=== PATIENT | female | born 1990 | race American Indian/Alaskan Native ===

== ENCOUNTER 2017-12-06 09:44 | Emergency (ER) | payer MEDICAID ==
[2017-12-06 09:45] VITALS: BMI 32.9
[2017-12-06 10:05] VITALS: BP 104/70; PULSE 103; RESP 16; TEMP 98.5; O2SAT 97
--- NOTE | 2017-12-06 10:35 | C.PDOC ---
History Of Present Illness 27 year old female, otherwise healthy, presents to the ER complaining of generalized weakness, cough, congestion, and body aches for 5 days. Also reports chills and sweats. Patient requesting note for absence from work. Otherwise no headache, abdominal pain, vomiting, diarrhea, or shortness of breath. HPI: Influenza Time Seen by Provider: 12/06/17 10:09 Chief Complaint: Flu-like Symptoms Chief Complaint (Provider): Flu-like Symptoms History Per: Patient Exam Limitations: no limitations Onset/Duration Of Symptoms: Days (x5) Symptoms include: bodyaches, cough, nasal congestion Risk factors for flu complications: No: adult > 65 years, child < 5 years, , chronic lung disease, endocrine disorders Past Medical History Reviewed: Historical Data, Nursing Documentation, Vital Signs Vital Signs: Last Vital Signs Temp 98.5 F 12/06/17 10:01 Pulse 103 H 12/06/17 10:01 Resp 16 12/06/17 10:01 BP 104/70 12/06/17 10:01 Pulse Ox 97 12/06/17 10:01 - Medical History PMH: Migraine Denies: Chronic Kidney Disease Surgical History: Cholecystectomy, - [facility] Procedures PLAIN RADIOGRAPHY OF HEPATOBIL SYS, ALL USING L OSM CONTRAST (01/16/16) RESECTION OF GALLBLADDER, PERCUTANEOUS ENDOSCOPIC APPROACH (01/16/16) Family History: States: No Known Family Hx - Social History Hx Alcohol Use: No Hx Substance Use: Yes - Immunization History Hx Tetanus Toxoid Vaccination: No Hx Influenza Vaccination: No Hx Pneumococcal Vaccination: No Review Of Systems Except As Marked, All Systems Reviewed And Found Negative. Constitutional: Positive for: Chills, Sweats, Weakness, Other (body aches). Negative for: Fever ENT: Positive for: Nose Congestion Cardiovascular: Negative for: Chest Pain Respiratory: Positive for: Cough. Negative for: Shortness of Breath Gastrointestinal: Negative for: Nausea, Vomiting Neurological: Negative for: Headache, Dizziness Physical Exam - Physical Exam Appears: Non-toxic, No Acute Distress Skin: Normal Color, Warm, Dry Head: Atraumatic, Normacephalic Eye(s): bilateral: Normal Inspection, PERRL, EOMI Ear(s): Bilateral: Normal Nose: Normal Oral Mucosa: Moist Throat: Normal, No Erythema, No Exudate Neck: Normal ROM, Supple Chest: Symmetrical Cardiovascular: Rhythm Regular Respiratory: Normal Breath Sounds, No Rales, No Rhonchi, No Wheezing Extremity: Bilateral: Atraumatic, Normal Color And Temperature, Normal ROM Neurological/Psych: Oriented x3, Normal Speech Medical Decision Making Medical Decision Making: Time: 10:16 Initial Plan: * POC urine Treatment in ED: * Motrin 600 mg PO * Tylenol 975 mg PO * Tamiflu 75 mg PO Patient stable for d/c home. Provided with rx for Tamiflu and Motrin. Counseled regarding diagnosis and return precautions. - Laboratory Results Urine POC: Negative - ECG O2 Sat by Pulse Oximetry: 97 (RA) Pulse Ox Interpretation: Normal Disposition Counseled Patient/Family Regarding: Diagnosis, Need For Followup, Rx Given - Disposition Referrals: [facility] [Outside] Disposition: HOME/ ROUTINE Disposition Time: 10:37 Condition: STABLE Prescriptions: Ibuprofen [Motrin] 600 mg PO TID #15 tab Oseltamivir [Tamiflu] 1 cap PO BID #10 cap Instructions: Flu, Adult (DC) Forms: General Discharge Instructions, [facility] (Romansh), Work Excuse - POA Present On Arrival: None - Clinical Impression Clinical Impression: Influenza - Scribe Statement The provider has reviewed the documentation as recorded by the Hammadibjose daniel Simons Provider Attestation: All medical record entries made by the Hammadibe were at my direction and personally dictated by me. I have reviewed the chart and agree that the record accurately reflects my personal performance of the history, physical exam, medical decision making, and the department course for this patient. I have also personally directed, reviewed, and agree with the discharge instructions and disposition.
== END 2017-12-06 10:48 | disposition home or self-care (01) ==
LOC: C.ER 09:44
DX: J11.1 Influenza due to unidentified influenza virus with other respiratory manifestations (principal)

== ENCOUNTER 2018-11-01 17:07 | Emergency (ER) | payer MEDICAID ==
[2018-11-01 17:07] VITALS: BMI 32.9
[2018-11-01 17:24] VITALS: RESP 18
[2018-11-01 17:48] LABS: INFLUENZA A B NEGATIVE FOR FLU A/B (NEGATIVE)
--- NOTE | 2018-11-01 18:00 | RAD ---
Date of service: 11/01/2018 HISTORY: cough, fever COMPARISON: No prior. TECHNIQUE: Chest PA and lateral FINDINGS: LUNGS: No active pulmonary disease. PLEURA: No significant pleural effusion identified. No pneumothorax apparent. CARDIOVASCULAR: No aortic atherosclerotic calcification present. Normal cardiac size. No pulmonary vascular congestion. OSSEOUS STRUCTURES: No significant abnormalities. VISUALIZED UPPER ABDOMEN: Normal. OTHER FINDINGS: None. IMPRESSION: No active disease.
[2018-11-01 18:01] LABS: SQUAMOUS EPITHIAL 6 /hpf (0-5); URINE BACTERIA FEW (<OCC); URINE BILIRUBIN NEGATIVE (NEGATIVE); URINE BLOOD 2+ (NEGATIVE); URINE CLARITY Clear (Clear); URINE COLOR Straw (YELLOW); URINE GLUCOSE (UA) NORMAL (Normal); URINE LEUKOCYTE ESTERASE 1+ Leu/uL (Negative); URINE PROTEIN NEGATIVE (NEGATIVE); URINE UROBILINOGEN NORMAL mg/dL (0.2-1.0)
[2018-11-01 18:29] VITALS: BP 133/77; PULSE 93; TEMP 98.6; O2SAT 98
--- NOTE | 2018-11-01 20:06 | C.PDOC ---
History Of Present Illness 28 y/o female, w/ no significant PMhx, presents to the ER complaining of chills, cough, vomiting, and generalized myalgias which have been present for the past 1 day. Three episodes of non-bloody, non-bilious emesis last night. Tolerating PO and having BM per baseline. Denies flu vaccination. Patient denies having vision changes, dizziness, neck pain, abdominal pain, diarrhea, constipation, urinary symptoms, headache, dizziness, sick contacts, or recent travel. Time Seen by Provider: 11/01/18 17:14 Chief Complaint (Nursing): Flu-like Symptoms History Per: Patient History/Exam Limitations: no limitations Onset/Duration Of Symptoms: Days Current Symptoms Are (Timing): Still Present Severity: Moderate Past Medical History Reviewed: Historical Data, Nursing Documentation, Vital Signs Vital Signs: Last Vital Signs Temp 98.6 F 11/01/18 18:27 Pulse 93 H 11/01/18 18:27 Resp 18 11/01/18 18:27 BP 133/77 11/01/18 18:27 Pulse Ox 98 11/01/18 18:27 - Medical History PMH: Migraine Denies: Chronic Kidney Disease Surgical History: Cholecystectomy, - [facility] Procedures PLAIN RADIOGRAPHY OF HEPATOBIL SYS, ALL USING L OSM CONTRAST (01/16/16) RESECTION OF GALLBLADDER, PERCUTANEOUS ENDOSCOPIC APPROACH (01/16/16) Family History: States: No Known Family Hx - Social History Hx Alcohol Use: No Hx Substance Use: Yes - Immunization History Hx Tetanus Toxoid Vaccination: No Hx Influenza Vaccination: No Hx Pneumococcal Vaccination: No Review Of Systems Except As Marked, All Systems Reviewed And Found Negative. Constitutional: Positive for: Chills. Negative for: Fever Eyes: Negative for: Vision Change ENT: Negative for: Throat Pain Cardiovascular: Negative for: Chest Pain, Palpitations, Light Headedness Respiratory: Negative for: Cough, Shortness of Breath Gastrointestinal: Positive for: Nausea, Vomiting. Negative for: Abdominal Pain, Diarrhea, Constipation, Hematochezia, Hematemesis Genitourinary: Negative for: Dysuria, Frequency, Hematuria Musculoskeletal: Negative for: Neck Pain Skin: Negative for: Rash Neurological: Negative for: Weakness, Numbness, Headache, Dizziness Physical Exam - Physical Exam Appears: Well, Non-toxic, No Acute Distress Skin: Normal Color, Warm, Dry Head: Atraumatic, Normacephalic Eye(s): bilateral: Normal Inspection, PERRL, EOMI Ear(s): Bilateral: Normal Nose: Normal Oral Mucosa: Moist Throat: Normal, No Erythema, No Exudate Neck: Normal, Normal ROM, Supple, No Other (no meningeal signs) Lymphatic: Normal Exam Chest: Symmetrical Cardiovascular: Rhythm Regular Respiratory: Normal Breath Sounds, No Rales, No Rhonchi, No Wheezing Gastrointestinal/Abdominal: Bowel Sounds (normoactive), Soft, No Tenderness, No Guarding, No Rebound Back: Normal Inspection, No CVA Tenderness Extremity: Normal ROM, Capillary Refill (<2s) Extremity: Bilateral: Atraumatic, No Pedal Edema, Normal Color And Temperature, Normal ROM Pulses: Left Radial: Normal, Right Radial: Normal Neurological/Psych: Oriented x3, Normal Speech, Normal Motor, Normal Sensation Gait: Steady ED Course And Treatment - Laboratory Results Lab Results: Urine Color Straw (YELLOW) 11/01/18 17:50 Urine Clarity Clear (Clear) 11/01/18 17:50 Urine pH 6.0 (5.0-8.0) 11/01/18 17:50 Ur Specific Sumner 1.005 (1.003-1.030) 11/01/18 17:50 Urine Protein Negative mg/dL (NEGATIVE) 11/01/18 17:50 Urine Glucose (UA) Normal mg/dL (Normal) 11/01/18 17:50 Urine Ketones Negative mg/dL (NEGATIVE) 11/01/18 17:50 Urine Blood 2+ (NEGATIVE) H 11/01/18 17:50 Urine Nitrate Negative (NEGATIVE) 11/01/18 17:50 Urine Bilirubin Negative (NEGATIVE) 11/01/18 17:50 Urine Urobilinogen Normal mg/dL (0.2-1.0) 11/01/18 17:50 Ur Leukocyte Esterase 1+ Thaddeus/uL (Negative) H 11/01/18 17:50 Urine WBC (Auto) 12 /hpf (0-5) H 11/01/18 17:50 Urine RBC (Auto) 7 /hpf (0-3) H 11/01/18 17:50 Ur Squamous Epith Cells 6 /hpf (0-5) H 11/01/18 17:50 Urine Bacteria Few (<OCC) H 11/01/18 17:50 O2 Sat by Pulse Oximetry: 98 (RA) Pulse Ox Interpretation: Normal - Radiology CXR: Interpreted by Me, Viewed By Me CXR Interpretation: Yes: No Acute Disease Medical Decision Making Medical Decision Making: Plan: --Flu Swab --Rapid Strep Test --CXR --UA --Tamiflu PO --Keflex PO CXR shows no active disease Rapid Flu: neg Rapid Strep: neg UA suspicious for UTI, will treat with Keflex Will treat empirically for flu secondary to acute onset of flu-like symptoms. First dose here. Diagnostic testing results and plan of care discussed with patient. Strict instructions given regarding prescription use, importance of followup, and signs/symptoms to return to ER including abdominal pain, chest pain, SOB, or any other new/worsening symptoms. Pt verbalized understanding of discussion. Patient is A&Ox3, ambulating with steady gait, with vital signs stable for discharge. Disposition - Disposition Referrals: [facility] at [facility] [Outside] Disposition: HOME/ ROUTINE Disposition Time: 18:10 Condition: GOOD Additional Instructions: Increase fluids Rest, no strenuous activity Tamiflu every 12 hours for 5 days, 9 more doses Keflex every 12 hours for 7 days, 13 more doses Followup with primary doctor tomorrow Return to ER with any new/worsening symptoms Prescriptions: Cephalexin [Keflex] 500 mg PO Q12H 7 Days #13 capsule Oseltamivir Cap [Tamiflu] 75 mg PO Q12H 5 Days #9 cap Instructions: Urinary Tract Infections in Adults, Flu, Adult (DC) Forms: General Discharge Instructions, [facility] (Panamanian), Work Excuse - Clinical Impression Clinical Impression: Influenza-like illness, UTI (urinary tract infection) - PA / [employer] WORKER / Resident Statement MD/DO has reviewed & agrees with the documentation as recorded. - Scribe Statement The provider has reviewed the documentation as recorded by the Michael Sawant Provider Attestation All medical record entries made by the Hammadibjose daniel were at my direction and pe rsonally dictated by me. I have reviewed the chart and agree that the record accurately reflects my personal performance of the history, physical exam, medical decision making, and the department course for this patient. I have also personally directed, reviewed, and agree with the discharge instructions and disposition.
== END 2018-11-01 18:28 | disposition home or self-care (01) ==
LOC: C.ER 17:07
DX: J11.1 Influenza due to unidentified influenza virus with other respiratory manifestations (principal); N39.0 Urinary tract infection, site not specified

== ENCOUNTER 2018-12-30 14:14 | Emergency (ER) | payer MEDICAID ==
[2018-12-30 14:14] VITALS: BMI 32.9
[2018-12-30 14:29] VITALS: TEMP 98
--- NOTE | 2018-12-30 14:51 | C.PDOC ---
History Of Present Illness 28yr old F w/ hx of compartment syndrome, cholecystectomy, c section, smoking p/w chest pain. Pt notes chest pain started yesterday, 9pm, sharp stabbing in her left shoulder then pins and needles into her lower chest. No hx of DM2 or crushing chest pain. She notes the pain is intermittent, and not associated with deep breaths. She denies any recent trauma, surgery, hx of blood clots, OCP / horomonal usage, familial bleeding disorders or hemoptysis. She denies any fever, chills or night sweats or cough. No rash. No abdominal pain or GI or complaints. No other complaints. Time Seen by Provider: 12/30/18 14:19 Chief Complaint (Nursing): Chest Pain Past Medical History Vital Signs: Last Vital Signs Temp 98 F 12/30/18 14:24 Pulse 95 H 12/30/18 14:24 Resp 20 12/30/18 14:24 BP 116/79 12/30/18 14:24 Pulse Ox 97 12/30/18 14:24 - Medical History PMH: Migraine Denies: Chronic Kidney Disease Surgical History: Cholecystectomy, - [facility] Procedures PLAIN RADIOGRAPHY OF HEPATOBIL SYS, ALL USING L OSM CONTRAST (01/16/16) RESECTION OF GALLBLADDER, PERCUTANEOUS ENDOSCOPIC APPROACH (01/16/16) Family History: States: Unknown Family Hx - Social History Hx Alcohol Use: No Hx Substance Use: No - Immunization History Hx Tetanus Toxoid Vaccination: No Hx Influenza Vaccination: Yes (07/2018) Hx Pneumococcal Vaccination: No Review Of Systems Constitutional: Negative for: Fever, Chills, Sweats, Weakness, Malaise, Weight loss Eyes: Negative for: Pain, Vision Change, Conjunctivae Inflammation, Eyelid Inflammation, Redness, Other ENT: Negative for: Ear Pain, Ear Discharge, Nose Pain, Nose Discharge, Nose Co ngestion, Mouth Pain, Mouth Swelling, Throat Pain, Throat Swelling Cardiovascular: Positive for: Chest Pain. Negative for: Palpitations, Orthopnea, Edema, Light Headedness Respiratory: Negative for: Cough, Shortness of Breath, Hemoptysis, SOB with E xcertion, Pleuritic Pain, Sputum, Wheezing Gastrointestinal: Negative for: Nausea, Vomiting, Abdominal Pain, Diarrhea, Constipation, Melena, Hematochezia, Hematemesis Genitourinary: Negative for: Dysuria, Frequency, Incontinence Musculoskeletal: Negative for: Neck Pain, Shoulder Pain, Arm Pain, Back Pain, Hand Pain, Leg Pain Skin: Positive for: Lesions ("pimple in abdomen") Neurological: Negative for: Weakness, Numbness, Incoordination Psych: Negative for: Anxiety, Depression Physical Exam - Physical Exam Appears: Well, Non-toxic, No Acute Distress Skin: Normal Color, Warm, Other (1x1cm redness below umbilicus without appreciable fluctuance. mild inuduration. No crepitus ) Head: Atraumatic, Normacephalic Eye(s): bilateral: Normal Inspection, PERRL, EOMI Ear(s): Bilateral: Normal Nose: Normal Oral Mucosa: Moist Tongue: Normal Appearing Lips: Normal Appearing Teeth: Normal Dentition Throat: Normal, No Erythema, No Exudate Neck: Normal, Normal ROM, Supple, Other (no meningeal signs) Chest: Symmetrical Cardiovascular: Rhythm Regular Respiratory: Normal Breath Sounds Gastrointestinal/Abdominal: Normal Exam, Soft, No Tenderness, No Mass, No Distention, No Guarding, No Rebound, No Hernia, No Ascites Back: Normal Inspection, No CVA Tenderness, No Vertebral Tenderness Extremity: Normal ROM Extremity: Bilateral: Atraumatic Neurological/Psych: Oriented x3, Normal Speech, Normal Cognition Gait: Steady ED Course And Treatment - Laboratory Results Result Diagrams: 12/30/18 14:53 12/30/18 16:05 O2 Sat by Pulse Oximetry: 97 Medical Decision Making Medical Decision Makin yr old F w/ hx of choley, c section, smoking p/w chest pain. Low risk heart score, likely non-cardiac in origin given presentation. Will seek x1 trop, imaging, labs. PT also notes infection below umbilicus, no drainable collection noted, mild cellulitis. No drainable collection on US. Low pretest wells: PERC out EK, NSR, no stemi Heart score: age: 0 rf: 1 story: 1 ek trop: pending 1522 xray unremarkable cbc unremarkable pt in NAD 1639 labs, imaging unremarkable clear for d/c home with return indications and followup abx given for abdominal cellulitis, endorsed to patient regarding cafeful following of cellulitis and warm compressess. Also endorsed importance of cardiology followup. She is agreeable Disposition - Disposition Referrals: Moiz Monteiro MD [Staff Provider] - [facility] [Outside] [facility] [Outside] [facility] [Outside] Nash Rousseau MD [Medical Doctor] - Disposition: HOME/ ROUTINE Disposition Time: 16:40 Condition: GOOD Additional Instructions: REGIS CORRAL, thank you for letting us take care of you today. Your provider was Jeff Mccrary and you were treated for CHEST PAIN. The emergency medical care y ou received today was directed at your acute symptoms. If you were prescribed any medication, please fill it and take as directed. It may take several days for your symptoms to resolve. Return to the Emergency Department if your symptoms worsen, do not improve, or if you have any other problems. Please contact your doctor or call one of the physicians/clinics you have been referred to that are listed on the Patient Visit Information form that is included in your discharge packet. Bring any paperwork you were given at discharge with you along with any medications you are taking to your follow up visit. Our treatment cannot replace ongoing medical care by a primary care provider outside of the emergency department. Thank you for allowing the [facility] team to be part of your care today. If you had an X-Ray or CT scan: A Radiologist will review the ED reading if any change in treatment is needed we will contact you. If you had a blood, urine, or wound culture: It will take several days for the results, if any change in treatment is needed we will contact you. If you had an STI test: It will take 48 hours for the results. Please call after 1 week if you have not heard back. Prescriptions: Sulfamethoxazole/Trimethoprim [Bactrim DS 800 mg-160 mg] 1 tab PO BID 5 Days #10 tab Instructions: Cellulitis and Erysipelas (Skin Infections), Chest Pain (DC), Cellulitis (Skin Infection), Adult (DC) Forms: [facility] (Croatian) - Clinical Impression Clinical Impression: Chest pain, Abdominal wall cellulitis
[2018-12-30 14:59] LABS: BASO % 0.4 % (0.0-2.0); EOS # 0.2 K/uL (0.0-0.7); EOS % 1.5 % (0.0-4.0); MEAN CORPUSCULAR HEMOGLOBIN 32.2 pg (27.0-31.0); MEAN CORPUSCULAR HGB CONC 33.5 g/dL (33.0-37.0); MEAN PLATELET VOLUME 10.2 fL (7.2-11.7); MONO # 0.7 K/uL (0.0-0.8); MONO % 6.5 % (0.0-10.0); NEUT # 6.5 K/uL (1.8-7.0); NEUT % 62.6 % (50.0-75.0); NRBC % 0.1 % (0.0-2.0); RBC 4.03 Mil/uL (3.80-5.20); WHITE BLOOD COUNT 10.4 K/uL (4.8-10.8)
[2018-12-30 15:02] LABS: MEAN CELL VOLUME 96.1 fL (81.0-99.0)
--- NOTE | 2018-12-30 15:09 | RAD ---
Date of service: 12/30/2018 HISTORY: cp COMPARISON: Comparison chest dated 11/01/2018 TECHNIQUE: Chest PA and lateral views FINDINGS: LUNGS: No active pulmonary disease. PLEURA: No significant pleural effusion identified. No pneumothorax apparent. CARDIOVASCULAR: No aortic atherosclerotic calcification present. Normal cardiac size. No pulmonary vascular congestion. OSSEOUS STRUCTURES: No significant abnormalities. VISUALIZED UPPER ABDOMEN: Normal. OTHER FINDINGS: None. IMPRESSION: No active disease.
[2018-12-30 16:16] LABS: ALB/GLOB RATIO 1.1 (1.0-2.1); ALBUMIN 4.7 g/dL (3.5-5.0); ALT/SGPT 18 U/L (9-52); AST/SGOT 31 U/L (14-36); BLOOD UREA NITROGEN 9 mg/dL (7-17); CALCIUM 9.9 mg/dl (8.6-10.4); GFR NON-AFRICAN AMERICAN > 60
[2018-12-30 16:50] VITALS: BP 123/69; PULSE 74; RESP 16; O2SAT 98
--- NOTE | 2018-12-31 09:24 | CARD ---
APPROVED REPORT Date of service: 12/30/2018 EKG Measurement Heart [id number] <Conclusion> Normal sinus rhythm Normal ECG
== END 2018-12-30 16:50 | disposition home or self-care (01) ==
LOC: C.ER 14:14
DX: R07.9 Chest pain, unspecified (principal); L03.311 Cellulitis of abdominal wall